=== PATIENT | female | born 1985 | race African-American/Black ===

== ENCOUNTER 2017-04-25 14:33 | Emergency (ER) | payer OTHER ==
[~2017-04-25] VITALS: Ht 172.7 cm; Wt 60.8 kg
--- NOTE | 2017-04-25 14:33 | NUR ---
Patient examined by Dr. Bocanegra in triage. Patient returned to waiting rm pending bed availablity.
[2017-04-25 14:36] VITALS: BP_SYST 132
[2017-04-25] MEDS ORDERED: ASPIRIN 325 MG TABLET PO ONE (15:15)
[2017-04-25 15:41] LABS: BASOPHILS # (AUTO) 0.1 K/uL (0.0-0.2); EOSINOPHILS # (AUTO) 0.1 K/uL (0.0-0.4); EOSINOPHILS % (AUTO) 0.7 % (0.0-4.0); HEMATOCRIT 40.1 % (36-48); HEMOGLOBIN 12.8 g/dL (12.0-16.0); LYMPHOCYTES # (AUTO) 0.9 K/uL (1.0-5.5); LYMPHOCYTES % (AUTO) 7.6 % (20.5-51.5); MEAN CORPUSCULAR HEMOGLOBIN 26 pg (27-31); MEAN CORPUSCULAR HGB CONC 32 % (32-36); MEAN CORPUSCULAR VOLUME 80 fL (79.0-98.0); MONOCYTES # (AUTO) 0.8 K/uL (0.0-1.0); MONOCYTES % (AUTO) 6.9 % (1.7-9.3); NEUTROPHILS % (AUTO) 83.8 % (40.0-70.0); PLATELET COUNT (AUTO) 356 K/uL (130-430); RED BLOOD CELL COUNT(AUTO) 4.99 MIL/uL (4.2-6.2); RED CELL DISTRIBUTION WIDTH 13.8 % (9.0-15.0); WHITE BLOOD COUNT (AUTO) 11.9 K/uL (4.8-10.8)
[2017-04-25 15:45] LABS: CALCIUM 9.6 mg/dL (8.4-11.0); CREATININE 0.73 mg/dL (0.55-1.30); POTASSIUM 3.8 mmol/L (3.5-5.1)
[2017-04-25 15:48] LABS: INR 1.1 (0.8-1.2); PROTHROMBIN TIME 12.4 SECS (9.5-12.5)
[2017-04-25 15:52] LABS: ALBUMIN 4.1 g/dL (3.4-4.8); PHOSPHORUS 2.6 mg/dL (2.7-4.5); TOTAL BILIRUBIN 0.5 mg/dL (0.0-1.0)
--- NOTE | 2017-04-25 15:56 | NUR ---
Pt placed to ER bed 05. Report received from SHANE Tao. Pt c/o generalized weakness with C/P that radiates to BUE for "weeks." Pt denies SOB.
[2017-04-25 16:26] LABS: BILIRUBIN,URINE NEGATIVE (NEGATIVE); BLOOD, URINE 2+ (NEGATIVE); CLARITY/URINE HAZY (CLEAR); COLOR,URINE YELLOW (YELLOW); GLUCOSE,URINE NEGATIVE (NEGATIVE); KETONES,URINE NEGATIVE (NEGATIVE); LEUKOCYTE ESTERASE ,URINE TRACE (NEGATIVE); NITRITE, URINE NEGATIVE (NEGATIVE); PH,URINE 7.5 (5.0-8.0); PROTEIN URINE NEGATIVE (NEGATIVE); UROBILINOGEN,URINE 0.2 (0.2-1.0)
[2017-04-25 16:27] LABS: BARBITURATE, URINE NEGATIVE (NEG <=200); BENZODIAZEPINE, URINE NEGATIVE (NEG <=150); CANNABINOID, URINE NEGATIVE (NEG <=50); COCAINE, URINE NEGATIVE (NEG <=150); METHAMPHETAMINES SCREEN,URINE NEGATIVE (NEG <=500); OPIATE, URINE NEGATIVE (NEG <=100); PHENCYCLIDINE SCREEN,URINE NEGATIVE (NEG <=25); UR TRICYCLIC ANTIDEPRESSANTS NEGATIVE (NEG <=300); URINE AMPHETAMINE NEGATIVE (NEG <=500); URINE METHADONE NEGATIVE (NEG <=200); URINE OXYCODONE SCREEN NEGATIVE (NEG <=100); URINE PROPOXYPHENE SCREEN NEGATIVE (NEG <=300)
[2017-04-25 16:28] LABS: BACTERIA,URINE FEW /HPF (None Seen); MUCUS,URINE None Seen /LPF (None Seen); RBC,URINE 0-3 /HPF (0-3)
--- NOTE | 2017-04-25 16:30 | NUR ---
TORI Leger at bedside to assess pt.
[2017-04-25] MEDS ORDERED: NACL 0.9% 1,000 ML IV ONE (16:45)
[2017-04-25] MEDS ORDERED: cefTRIAXone 1 GM IVPB PREMIX 50 ML IV ONE (16:45)
--- NOTE | 2017-04-25 16:50 | NUR ---
Pt assisted to restroom, unsteady gait, generalized weakness.
[2017-04-25] MEDS ORDERED: DIPHENHYDRAMINE INJ 50 MG/ML VIAL IVP ONE (17:00)
[2017-04-25] MEDS ORDERED: PROCHLORPERAZINE EDISYLATE 10 MG/2 ML VIAL IVP ONE (17:00)
--- NOTE | 2017-04-25 18:00 | NUR ---
Pt resting quietly, easily awakened, AAOx4. Denies c/o pain or discomfort. No needs verbalized at this time.
[2017-04-25 18:45] VITALS: BP_SYST 120
--- NOTE | 2017-04-25 18:45 | NUR ---
Patient given written and verbal discharge instructions and verbalizes understanding. ER MD discussed with patient the results and treatment provided. Patient in stable condition. ID arm band removed. IV catheter removed intact and dressing applied, no active bleeding. Rx of Mobic, Macrobid, and Pyridium given. Patient educated on pain management and to follow up with PMD. Pain Scale 0/10. Opportunity for questions provided and answered.
== END 2017-04-25 18:45 | disposition home or self-care (01) ==
LOC: SED 14:33
DX: R07.9 Chest pain, unspecified (principal); R51 Headache; N39.0 Urinary tract infection, site not specified; D72.829 Elevated white blood cell count, unspecified; R53.1 Weakness; Z88.8 Allergy status to other drugs, medicaments and biological substances
CPT/HCPCS: 36415; 71010; 80053; 80307; 81000; 81025; 82550; 83735; 84100; 84484; 85025; 85610; 85730; 87040; 93005; 96365; 96374; 96375; 99285; J0696; J0780; J1200; J7030